=== PATIENT | female | born 1990 | race Caucasian/White ===

== ENCOUNTER → 2017-07-10 | Outpatient (CLI) | payer BC ==
--- NOTE | 2017-07-10 14:28 | CPEEG ---
[f rep st] ELECTROENCEPHALOGRAM DATE OF STUDY: 07/10/2017 DATE OF INTERPRETATION: 07/10/2017 INTERPRETATION: Normal EEG during wakefulness and sleep. There were no potentially epileptogenic ab normalities present in the recording. REPORT: This EEG contains 9-10 Hz alpha activity to the posterior head regions. There was no abnorm al activation at rest, during photic stimulation, or hyperventilation. The patient became drowsy and fell asleep during the study. There was no abnormal activation during drowsiness, sleep, or during times of arousal. /[id number]/MODL
== END ==
LOC: FCPNEURO 08:48
PROVIDERS: ATTEND Psychiatry & Neurology Neurology
DX: R25.9 Unspecified abnormal involuntary movements (principal)